=== PATIENT | female | born 1990 | race Caucasian/White ===

== ENCOUNTER 2021-03-18 05:51 | Emergency (ER) | payer MEDICAID, SELFPAY ==
[2021-03-18 05:59] VITALS: BP 139/93; PULSE 108; RESP 15; TEMP 37.2; O2SAT 100; BMI 22.6
--- NOTE | 2021-03-18 06:25 | ED_ITS ---
HPI - Dental/Oral General Chief complaint: Dental/Oral Stated complaint: tooth pain Time Seen by Provider: 03/18/21 06:20 Source: patient Mode of arrival: ambulatory Limitations: no limitations History of Present Illness HPI Narrative: Patient comes to emergency room complaining of dental pain in the left mandibular side. Patient states that she has been waiting for crown placement. Patient recently moved from [place], does not have a dentist yet. Patient states that yesterday when she was eating, she believes that she should something hard, and the pain became intense. Patient denies fever chills Related Data Previous Rx's Medication Instructions Recorded ketorolac 10 mg tablet 10 mg PO TID PRN 5 Days #10 tab 03/18/21 ketorolac 10 mg tablet 10 mg PO TID PRN 5 Days #10 tab 03/18/21 Allergies Allergy/AdvReac Type Severity Reaction Status Date / Time Penicillins [PENICILLINS] Allergy Severe ANAPHYLAXIS Verified 03/18/21 05:58 Sulfa (Sulfonamide Allergy Severe ANAPHYLAXIS Verified 03/18/21 05:58 Antibiotics) [SULFA (SULFONAMIDE ANTIBIOTICS)] amoxicillin Allergy Anaphylaxis Verified 03/18/21 05:58 clindamycin Allergy Unknown Anaphylaxis Uncoded 03/18/21 05:58 penicillin Allergy Unknown Anaphylaxis Uncoded 03/18/21 05:58 sulfa Allergy Unknown Anaphylaxis Uncoded 03/18/21 05:58 Review of Systems Review of Systems: Constitutional : No Weight loss, No Fever, No Chills, No Night Sweats, No Fatigue, No Malaise ENT/Mouth : No Hearing loss, No Ear Pain, No Nasal Congestion, No Sinus Pain, No Hoarseness, No sore throat, No Rhinorrhea, No Swallowing Difficulty, complaining of dental pain in the left mandibular side Eyes: No Eye Pain, No Swelling, No Redness, No Foreign Body, No Discharge, No Vision Changes Cardiovascular : No Chest Pain, No SOB, No Dyspnea on Exertion, No Orthopnea, No Edema, No Palpitations Respiratory : No Cough, No Sputum, No Wheezing, No Smoke Exposure, No Dyspnea Gastrointestinal : No Nausea, No Vomiting, No Diarrhea, No Constipation, No abdominal Pain, No Hematochezia, No Melena Genitourinary : no irregular bleeding, No Dysuria, No Urinary Frequency, No Hematuria, No Urinary Incontinence, No Urgency, No Flank Pain, No Urinary Flow Changes, No Hesitancy Musculoskeletal : No joint pain, No Myalgias, No Joint Swelling Skin : No Skin Lesions, No rash Neuro : No Weakness, No Numbness, No Paresthesias, No Loss of Consciousness, No Dizziness, No Headache Psych : No Anxiety/Panic, No Depression, No SI/HI/AH/VH, No Social Issues, Heme/Lymph: No Bruising, No Bleeding,No Lymphadenopathy Endocrine : No Polyuria, No Polydipsia, No Temperature Intolerance [facility] Social History Social History Advance Directives: No Advance Directives Information Provided: Yes Physical Exam Vital Signs: Vital Signs: Last Vital Signs Temp 98.9 F 03/18/21 05:59 Pulse 108 H 03/18/21 05:59 Resp 15 03/18/21 05:59 BP 139/93 H 03/18/21 05:59 Pulse Ox 100 03/18/21 05:59 BMI result Body Mass Index 22.6 Const: Other: Appearance: Alert. Oriented X3. No acute distress. Eyes: Pupils equal, round and reactive to light. ENT: Pharynx normal. Good dentition other than the last tooth on the left mandibular side, pain to touch, the gums look normal, no signs of infection Neck: Normal inspection. Neck supple. No lymph nodes noted. No crepitus CVS: Normal heart rate and rhythm. Pulses normal. Normal S1 and S2 Respiratory: No respiratory distress. Breath sounds normal. No Wheezing. No rales Abdomen: Soft and nontender. No rigidity. No distention. Skin: Skin warm and dry. Normal skin color. Normal skin turgor. Extremities: No lower extremity edema. No lower extremity edema. No Lacerations. No Rash Neuro: Oriented X 3. No motor deficit. No sensory deficit. Moving all extermities. No slurred speech. Course Course Course Narrative: At this time, infection is not suspected, pain was likely secondary to a mechanical injury. Patient is to have a found placement. Patient was given 1 injection of ketorolac IM, and information to call local dentist Discharge Plan Discharge Clinical Impression: Toothache Patient Disposition: Home, Self-Care Instructions: Toothache (ED) Additional Instructions: Please follow-up with your primary care physician and dentist tomorrow. If you have any worsening or new symptoms, please return to the emergency room or call 911 Prescriptions: New ketorolac 10 mg tablet 10 mg PO TID PRN (Reason: pain) 5 Days Qty: 10 RF: 0 ketorolac 10 mg tablet 10 mg PO TID PRN (Reason: pain) 5 Days Qty: 10 RF: 0
[2021-03-18] MEDS: Ketorolac Tromethamine 60 MG/2 ML VIAL IM (06:44)
== END 2021-03-18 07:54 | disposition home or self-care (01) ==
PROVIDERS: Emergency Provider Emergency Medicine
DX: K08.89 Other specified disorders of teeth and supporting structures (principal)
CPT/HCPCS: 96372; 99283; 99284; J1885

== ENCOUNTER 2021-11-07 07:39 | Emergency (ER) | payer MEDICAID, SELFPAY ==
[2021-11-07 07:40] VITALS: BP 134/96; PULSE 110; RESP 16; TEMP 37.1; O2SAT 97; BMI 22.1
--- NOTE | 2021-11-07 07:57 | ED.GENADULT ---
HPI - General Adult General Chief complaint: General Medical Stated complaint: Mold exposure ilness Time Seen by Provider: 11/07/21 07:44 Source: patient Mode of arrival: ambulatory Limitations: no limitations History of Present Illness MD complaint: mold exposure Onset (ago): week(s) (1) Severity: mild and moderate Quality: burning and dull Pain Consistency: intermittent Relieving factors: none Exacerbating factors: other (exposure to drain leak in apartment) Associated symptoms: confusion, cough, headaches, loss of appetite, malaise and nausea/vomiting Treatments prior to arrival: other (fluticasone) Related Data Previous Rx's Medication Instructions Recorded ketorolac 10 mg tablet 10 mg PO TID PRN pain 5 days #10 03/18/21 tabs ketorolac 10 mg tablet 10 mg PO TID PRN pain 5 days #10 03/18/21 tabs Allergies Allergy/AdvReac Type Severity Reaction Status Date / Time Penicillins [PENICILLINS] Allergy Severe ANAPHYLAXIS Verified 03/18/21 05:58 Sulfa (Sulfonamide Allergy Severe ANAPHYLAXIS Verified 03/18/21 05:58 Antibiotics) [SULFA (SULFONAMIDE ANTIBIOTICS)] amoxicillin Allergy Anaphylaxis Verified 03/18/21 05:58 clindamycin Allergy Unknown Anaphylaxis Uncoded 03/18/21 05:58 penicillin Allergy Unknown Anaphylaxis Uncoded 03/18/21 05:58 sulfa Allergy Unknown Anaphylaxis Uncoded 03/18/21 05:58 Review of Systems Review of Systems: Constitutional : No Fever, No Chills, pos Fatigue, No Malaise ENT/Mouth : No sore throat, pos Rhinorrhea Eyes: No Eye Pain, No Swelling, No Redness Cardiovascular : No Chest Pain, No SOB Respiratory : pos Cough, No Sputum, No Wheezing Gastrointestinal : pos Nausea, No Vomiting, No Diarrhea, No abdominal Pain, No Hematochezia, No Melena Genitourinary : No Dysuria, No Urinary Frequency, No Hematuria, Musculoskeletal : No joint pain, No Myalgias, No Joint Swelling Skin : No Skin Lesions, No rash Neuro : No Weakness, No Numbness, No Dizziness, No Headache Psych : pos Anxiety/Panic, No Depression PMFSH Past Medical History Attestation statement: The following information was validated with the patient. Medical History No pertinent past medical history Social History Social History (Updated 11/07/21 @ 08:03 by Siobhan Salgado DO) Patient Tobacco Use Status: Never used Tobacco Physical Exam ED Vital Signs: Vital Signs - 24 hr 11/07/21 07:40 Temperature 98.8 F Pulse Rate 110 H Respiratory Rate 16 Blood Pressure 134/96 H Pulse Oximetry 97 Oxygen Delivery Method Room Air BMI result Body Mass Index 22.1 Appearance: Alert. Oriented X3. No acute distress. Eyes: Pupils equal, round and reactive to light. ENT: Pharynx normal. Neck: Normal inspection. Neck supple. CVS: Normal heart rate and rhythm. Pulses normal. Respiratory: No respiratory distress. Breath sounds normal. Abdomen: Soft and nontender. Skin: Skin warm and dry. Normal skin color. Normal skin turgor. Extremities: No lower extremity edema. Neuro: Oriented X 3. No motor deficit. No sensory deficit. Medical Decision Making MDM Narrative Medical decision making narrative: 30 yo patient with 1 week exposure to drain leak in apartment now excessive mold smell noted causing coughing, brain fog, anxiety, nausea - symptoms do seem to improve with removal from area but they're landlord is not taking the claims seriously. Patient is not toxic appearing at this time. But symptoms will persist if patient continues to be exposed to this area. Discharge Plan Discharge Clinical Impression: Mold exposure Patient Disposition: Home, Self-Care Instructions: Allergic Rhinitis (ED), Contact Precautions (ED) Additional Instructions: return to ED for any worsening symptoms or concerns you should avoid the area with mold - your symptoms will persist until this is cleaned up. Strict avoidance of this area should be done including not living in the area until proper cleaning has been done. Prescriptions: No Action ketorolac 10 mg tablet 10 mg PO TID PRN (Reason: pain) 5 Days Qty: 10 0RF ketorolac 10 mg tablet 10 mg PO TID PRN (Reason: pain) 5 Days Qty: 10 0RF Rx Instructions: Do not use Advil/Motrin with this medication, only use Tylenol if needed for breakthrough pain. Stand Alone Forms: Work/School Release
== END 2021-11-07 08:35 | disposition home or self-care (01) ==
PROVIDERS: Emergency Provider Emergency Medicine; PCP Nurse Practitioner Family
DX: Z77.120 Contact with and (suspected) exposure to mold (toxic) (principal); R11.0 Nausea; J34.89 Other specified disorders of nose and nasal sinuses
CPT/HCPCS: 99282